=== PATIENT | male | born 1970 | race Caucasian/White ===

== ENCOUNTER 2020-06-29 09:57 | Emergency (ER) | payer OTHER ==
--- NOTE | 2020-06-29 11:51 | EDM.PDOC ---
ED HPI GENERAL MEDICAL PROBLEM - General Chief Complaint: Skin Complaint Stated Complaint: R ARM SKIN COMPLAINT Time Seen by Provider: 06/29/20 11:15 Source of Information: Reports: Patient, RN Notes Reviewed History Limitations: Reports: No Limitations - History of Present Illness INITIAL COMMENTS - FREE TEXT/NARRATIVE: Patient is a 50-year-old male who presents to the ED for evaluation of a skin complaint. Patient notes 2 days ago, he had some shooting pains in his right upper back, and then yesterday he noticed a rash that developed in about the area where the pain was. He notes this was to the upper back, into the armpit and on the upper right chest. He states that it does burn at times, and there are some blisterlike lesions along this rash. He states is not itchy, and that he inadvertently scratched it and some of the blisters popped. He did put some A&D ointment on it, and this seemed to help relieve some of the burning/irritation. He states that the pain is not really bothersome, he did take some ibuprofen for this last night and it seemed to help a little bit. He notes that he thinks he did have chickenpox when he was younger, but is from [place] so he is not entirely sure; but does remember a red itchy rash when he was younger. He is an over the road truck driver heavy, and states that he is not been getting a lot of sleep, and has had increased stress due to his mother's health back in [place]. He further denies any fever/chills, cough/shortness of breath, nausea/vomiting/diarrhea. - Related Data Allergies Allergy/AdvReac Type Severity Reaction Status Date / Time No Known Allergies Allergy Verified 06/29/20 11:10 Home Meds: Home Meds Ibuprofen 800 mg PO TID #30 tablet 06/29/20 [Rx] amLODIPine Besylate [Amlodipine Besylate] 5 mg PO DAILY 06/29/20 [History] hydroCHLOROthiazide [Hydrochlorothiazide] 25 mg PO DAILY 06/29/20 [History] valACYclovir HCl [valACYclovir] 1,000 mg PO TID #21 tablet 06/29/20 [Rx] Past Medical History Cardiovascular History: Reports: Hypertension Social & Family History - Tobacco Use Smoking Status *Q: Never Smoker - Caffeine Use Caffeine Use: Reports: None - Recreational Drug Use Recreational Drug Use: No - Living Situation & Occupation Occupation: Employed (as an over the road truck driver heavy) ED ROS GENERAL - Review of Systems Review Of Systems: Comprehensive ROS is negative, except as noted in HPI. ED EXAM, SKIN/RASH Exam: See Below Exam Limited By: No Limitations General Appearance: Alert, WD/WN, No Apparent Distress Respiratory/Chest: No Respiratory Distress, Lungs Clear, Normal Breath Sounds, No Accessory Muscle Use, Chest Non-Tender Cardiovascular: Normal Peripheral Pulses, Regular Rate, Rhythm, No Murmur Peripheral Pulses: 2+: Radial (L), Radial (R) Back Exam: Full Range of Motion Extremities: Normal Range of Motion, Normal Capillary Refill Neurological: Alert, Oriented, Normal Cognition, No Motor/Sensory Deficits Psychiatric: Normal Affect, Normal Mood Skin: Warm, Dry, Intact, Normal Color, Zoster-Like Rash (To the T1 distribution of his right back armpit and upper chest. There are vesicular type lesions on an erythematous base.) Course - Vital Signs Last Recorded V/S: Last Vital Signs Temp 97.4 F 06/29/20 11:07 Pulse 91 06/29/20 11:07 Resp 16 06/29/20 11:07 BP 155/118 H 06/29/20 11:07 Pulse Ox 96 06/29/20 11:07 - Re-Assessments/Exams Free Text/Narrative Re-Assessment/Exam: 06/29/20 11:50 Patient presents to the ED for evaluation of his rash. This is clinically consistent with shingles. Will get started on valacyclovir 1000 mg every 8 hours x7 days, and give him a prescription for 800 mg ibuprofen 3 times a day as he is an over the road truck driver heavy, and he cannot have any sort of opioid medications while driving truck. Departure - Departure Time of Disposition: 11:51 Disposition: Home, Self-Care 01 Condition: Good Clinical Impression: Shingles rash Qualifiers: Herpes zoster complications: without complications Qualified Code(s): B02.9 - Zoster without complications - Discharge Information *PRESCRIPTION DRUG MONITORING PROGRAM REVIEWED*: No *COPY OF PRESCRIPTION DRUG MONITORING REPORT IN PATIENT AJITH: No Prescriptions: Ibuprofen 800 mg PO TID #30 tablet valACYclovir HCl [valACYclovir] 1,000 mg PO TID #21 tablet Instructions: Shingles, Kryk-cy-Yfel Referrals: PCP,Not In Area [Primary Care Provider] - Additional Instructions: You were evaluated in the ED for your rash. This is most consistent with Shingles. You have been given an informational handout on this disease. You have been given a prescription for valacyclovir (an antiviral), please take 1 tab every 8 hours for the next 7 days. Please start this as soon as you get this filled today. You have been given a prescription for ibuprofen, 800 mg, please take 1 tab every 6-8 hours as needed for pain relief. You may continue to use the A&D ointment on the area to help provide a barrier from irritation relief. Please return to the ER if your symptoms change or worsen. Sepsis Event Note (ED) - Evaluation Sepsis Screening Result: No Definite Risk - Focused Exam Vital Signs: Vital Signs Temp Pulse Resp BP Pulse Ox 06/29/20 11:07 97.4 F 91 16 155/118 H 96
[2020-06-29] MEDS ORDERED: Sodium Chloride 0.9% 0 ML ONE (11:53)
== END 2020-06-29 12:23 | disposition home or self-care (01) ==
LOC: JD.ED 09:57
DX: B02.9 Zoster without complications (principal); I10 Essential (primary) hypertension; Z79.899 Other long term (current) drug therapy
CPT/HCPCS: 99282; 99283